=== PATIENT | female | born 1935 | race Caucasian/White ===

== ENCOUNTER 2018-02-13 13:02 | Day surgery (SDC) | payer MEDICARE, OTHER | END 2018-02-13 15:30 | disposition home or self-care (01) | LOC: GIL 13:02 | DX: K52.82 Eosinophilic colitis (principal); E11.9 Type 2 diabetes mellitus without complications; I10 Essential (primary) hypertension; E78.5 Hyperlipidemia, unspecified; I25.10 Atherosclerotic heart disease of native coronary artery without angina pectoris | CPT/HCPCS: 45330; 82962 ==